=== PATIENT | female | born 1945 ===

== ENCOUNTER 2020-02-08 13:59 | Emergency (ER) | payer OTHER ==
[~2020-02-08] VITALS: Ht 162.6 cm; Wt 65.8 kg
[~2020-02-08 13:59] MED LIST: ATENOLOL25 MG; CRESTOR20 MG; TENORMIN50 MG PO
[2020-02-08] MEDS ORDERED: CELEXA40 MG PO (14:24)
[2020-02-08] MEDS ORDERED: TRAZODONE HCL50 MG PO (14:24)
[2020-02-08] MEDS ORDERED: TOPROL XL25 M1 PO (14:25)
[2020-02-08] MEDS ORDERED: NAMENDA XR28 MG PO (14:25)
[2020-02-08] MEDS ORDERED: ARICEPT10 MG PO (14:25)
[2020-02-08] MEDS ORDERED: LIPITOR40 MG PO (14:26)
== END 2020-02-08 20:35 | disposition home or self-care (01) ==
LOC: ER 13:59
DX: L89.610 Pressure ulcer of right heel, unstageable (principal); Z03.818 Encounter for observation for suspected exposure to other biological agents ruled out